=== PATIENT | male | born 1985 | race Caucasian/White ===

== ENCOUNTER 2017-12-04 21:59 | Emergency (ER) | payer OTHER ==
[~2017-12-04] VITALS: Ht 165.1 cm; Wt 90.7 kg
[2017-12-05] MEDS ORDERED: KEFLEX500 M1 PO (01:15)
[2017-12-05 01:28] VITALS: BP 128/65
== END 2017-12-05 01:31 | disposition home or self-care (01) ==
LOC: ER 21:59
DX: S71.112A Laceration without foreign body, left thigh, initial encounter (principal); F17.210 Nicotine dependence, cigarettes, uncomplicated; W18.39XA Other fall on same level, initial encounter; Y92.89 Other specified places as the place of occurrence of the external cause; Y93.89 Activity, other specified; Y99.8 Other external cause status

== ENCOUNTER → 2018-01-18 | Outpatient (CLI) | payer OTHER ==
[~2018-01-18] MED LIST: AUGMENTIN 875-1 EACH PO; CENTANY30 GM TOP; COLACE100 MG PO; KEFLEX500 M1 PO; LINEZOLID600 MG PO; NORCO 5-325 TA1 EACH PO; PERCOCET PO; PROBIOTIC1 EAC1 PO
== END ==
LOC: HYPER 01-06 14:40
DX: S71.112A Laceration without foreign body, left thigh, initial encounter (principal); K21.9 Gastro-esophageal reflux disease without esophagitis; R60.0 Localized edema; F17.200 Nicotine dependence, unspecified, uncomplicated; V29.9XXA Motorcycle rider (driver) (passenger) injured in unspecified traffic accident, initial encounter; Y93.89 Activity, other specified; Y92.89 Other specified places as the place of occurrence of the external cause; Y99.8 Other external cause status

== ENCOUNTER → 2018-01-26 | Outpatient (CLI) | payer OTHER | LOC: HYPER 06:19 | DX: S71.112D Laceration without foreign body, left thigh, subsequent encounter (principal); B95.62 Methicillin resistant Staphylococcus aureus infection as the cause of diseases classified elsewhere; K21.9 Gastro-esophageal reflux disease without esophagitis; F17.200 Nicotine dependence, unspecified, uncomplicated; X58.XXXD Exposure to other specified factors, subsequent encounter ==

== ENCOUNTER 2018-07-11 15:45 | Emergency (ER) | payer OTHER ==
[~2018-07-11] VITALS: Ht 167.6 cm; Wt 99.3 kg
[2018-07-11 18:01] VITALS: BP 138/81
== END 2018-07-11 18:08 | disposition home or self-care (01) ==
LOC: ER 15:45
DX: M79.605 Pain in left leg (principal); F17.210 Nicotine dependence, cigarettes, uncomplicated; K21.9 Gastro-esophageal reflux disease without esophagitis

== ENCOUNTER 2018-10-08 08:35 | Emergency (ER) | payer OTHER ==
[~2018-10-08] VITALS: Ht 165.1 cm; Wt 95.3 kg
[2018-10-08 08:37] VITALS: BP 141/99
== END 2018-10-08 09:00 | disposition home or self-care (01) ==
LOC: ER 08:35
DX: S01.81XD Laceration without foreign body of other part of head, subsequent encounter (principal); K21.9 Gastro-esophageal reflux disease without esophagitis; F17.210 Nicotine dependence, cigarettes, uncomplicated; X58.XXXD Exposure to other specified factors, subsequent encounter